=== PATIENT | male | born 1975 | race Caucasian/White ===

== ENCOUNTER → 2023-06-18 10:06 | Outpatient (REF) | payer SELFPAY | LOC: HWRAD 10:06 | PROVIDERS: ATTENDING PHYSICIAN Nurse Practitioner | DX: E78.5 Hyperlipidemia, unspecified (principal) | CPT/HCPCS: 75571 ==

== ENCOUNTER → 2024-06-11 08:48 | Outpatient (REF) | payer OTHER, SELFPAY | LOC: DHSLP 08:48 | PROVIDERS: ATTENDING PHYSICIAN Internal Medicine Critical Care Medicine; FAMILY PHYSICIAN Nurse Practitioner | DX: G47.33 Obstructive sleep apnea (adult) (pediatric) (principal); R09.02 Hypoxemia | CPT/HCPCS: 95800 ==